=== PATIENT | female | born 1940 | race African-American/Black ===

== ENCOUNTER 2016-08-25 11:01 | Inpatient (IN) ==
[2016-08-25] MEDS ORDERED: NITROGLYCERIN SL 0.4 MG TABLET SL PRN (11:37)
[2016-08-25] MEDS ORDERED: ENOXAPARIN 100 MG/ML SYRINGE SUBCUT STA (11:37)
[2016-08-25] MEDS ORDERED: ASPIRIN 325 MG TABLET PO STA (11:37)
--- NOTE | 2016-08-25 11:42 | EKG Report ---
Stationary ECG Study [facility] ER Test Date: 08/25/2016 11:22:32 AM Pat Name: ROSA MARIA HUNTER Department: Room: Gender: F Collection Coordinator: Iris : 1940 Requested by: Bhavesh Nguyen Order Number: [id number] Reading MD: FRANCISCO NEWMAN Intervals [place] Rate: 101 P: 74 NC: 197 QRS: 51 QRSD: 78 T: 55 QT: 353 QTc: 411 Interpretive Statements SINUS TACHYCARDIA LOW QRS VOLTAGE IN CHEST LEADS Electronically Signed On 08-29-16 05:58:27 CORONARY CLINICAL SPECIALIST by FRANCISCO NEWMAN [email or web address]
[2016-08-25] MEDS ORDERED: ENOXAPARIN 80 MG/0.8 ML SYRINGE SUBCUT ONE (11:49)
[2016-08-25] MEDS ORDERED: ASPIRIN 325 MG TABLET ONE (11:50)
[2016-08-25] MEDS ORDERED: NITROGLYCERIN SL 0.4 MG TABLET SL ONE (11:50)
[2016-08-25 11:53] LABS: Basophils % 0.4 % (0.0-0.8); Eosinophils # 0.1 10*3/uL (0.0-0.87); Eosinophils % 1.5 % (0.00-10.9); Hematocrit 41.8 VOL% (35.7-47.0); Hemoglobin 13.6 GM/DL (12.0-16.0); Immature Granulocytes % 0.1 %; Immature Granulocytes Absolute 0.01 #; Lymphocytes # 3.4 10*3/uL (1.4-4.0); Lymphocytes % 41.9 % (21.3-54.2); Mean Corpuscular HGB Conc 32.5 GM/DL (32-36); Mean Corpuscular Hemoglobin 30 PG (27-34); Mean Corpuscular Volume 92.3 FL (87-102); Mean Platelet Volume 11.4 FL (9.6-12.0); Monocytes # 0.7 10*3/uL (0.11-0.8); Monocytes % 8.3 % (1.7-12.7); Neutrophils # 3.9 10*3/uL (1.4-7.4); Neutrophils % 47.8 % (38.7-73.9); Platelet Count 279 T/CUMM (130-400); Red Blood Count 4.53 MC/CUMM (3.8-5.5); Red Cell Distribution Width 13.2 % (9.3-17.3); White Blood Count 8.1 T/CUMM (4-12)
--- NOTE | 2016-08-25 12:06 | XRay Report ---
Portable chest Date: 08/25/2016 Clinical history: Chest pain Comparison: 10/28/2015 Technique: Portable AP sitting chest Findings: The heart is normal in size with uncoiling of the aorta. Chronic scarring in the lungs with minimal diffuse parenchymal findings at the lung bases. Osteopenia with degenerative changes. The patient is rotated on the film. Impression: Minimal atelectasis/infiltration/edema at the lung bases. Underlying chronic scarring. Osteopenia. PROCEDURE INTERPRETED AT [facility] DEPARTMENT OF RADIOLOGY Final Report Signed by: Dr. Abby Zacarias
[2016-08-25 12:16] LABS: Alanine Aminotransferase 18 U/L (13-56); Albumin 3.6 G/DL (3.4-5.0); Alkaline Phosphatase 120 U/L (45-117); Aspartate Amino Transferase 15 U/L (0-37); Bilirubin,Total < 0.39 MG/DL (0.2-1.0); Blood Urea Nitrogen 15 MG/DL (7-18); Calcium 9.1 MG/DL (8.5-10.1); Glucose 107 MG/DL (74-106); Magnesium 2.1 MG/DL (1.8-2.4); Osmolality,Calculated 283.1 MOS/KG (273-304); Potassium 4.1 MMOL/L (3.5-5.1); Sodium 142 MMOL/L (136-145); Total Protein 7.6 G/DL (6.4-8.3)
--- NOTE | 2016-08-25 13:34 | Emergency Department Note ---
Leah Barnes Brittany, am scribing for, and in the presence of, Bhavesh Kemp MD 11:46. Viridiana Barnes Phillip K, MD, personally performed the services described in this documentation, ascribed by Yenni Lynn in my presence, and it is both accurate and complete [id number] . Arrival - Arrival Chief Complaint: Chest Pain Stated Complaint: chest pain ED Nursing Triage Note: C/o intermittent, midsternal chest tightness-onset 0815 this morning. +SOB with exertion. Denies N/V. Denies CP at current. Mode of Arrival: Ambulatory Limitations: No Limitations Source: Patient Time Seen by Provider: 08/25/16 11:31 - History of Present Illness HPI Narrative: This is a 75 y/o black female,who presents to the ED with c/o CP which started at 0815 this morning. She states the pain comes and goes. She states she was eating breakfast this morning when the pain started. She denies any radiation. She denies any fever, diaphoresis, or nausea but notes a dry cough. She states the pain is not assoicated with exertion. Pt has no toher complaints/pain in the ED at this time. Pt has a PMHx of thyroid disorder, HTN, peripheral neuropathy, NIDDM, dyslipidemia, bronchitis, GERD, and back/neck problems. Pt has had an appendectomy and hysterectomy. Pt has a family medical Hx of heart disease, cancer, diabetes, HTN, and stroke. Pt denies a social Hx. Onset (ago): hour(s) (Started at 0815 this morning) Consistency: intermittent Severity: moderate Date of Last Menstrual Period: hysterectomy Allergies/Adverse Reactions: Allergies Allergy/AdvReac Type Severity Reaction Status Date / Time aspirin AdvReac Gastrointestinal Verified 10/28/15 11:31 Upset Penicillins AdvReac Swelling Verified 10/28/15 11:31 of Lip/Tongue/Throat Home Medications: Home Medications Medication Instructions Recorded Confirmed Type Amitriptyline HCl 25 mg PO BEDTIME 02/26/15 10/28/15 History Clopidogrel [Plavix] 75 mg PO DAILY 02/26/15 10/28/15 History Esomeprazole Magnesium [Nexium] 40 mg PO DAILY 02/26/15 10/28/15 History Meloxicam 15 mg PO DAILY 02/26/15 10/28/15 History Montelukast Tab [Singulair Tab] 10 mg PO DAILY 02/26/15 10/28/15 History Simvastatin [Zocor] 40 mg PO BEDTIME 02/26/15 10/28/15 History Tramadol HCl [Tramadol Tab] 50 mg PO BID 02/26/15 10/28/15 History amLODIPine [Norvasc] 5 mg PO DAILY 02/26/15 10/28/15 History hydroCHLOROthiazide 25 mg PO DAILY 02/26/15 10/28/15 History [Hydrochlorothiazide] methIMAzole [Tapazole] 10 mg PO DAILY 02/26/15 10/28/15 History metFORMIN [Glucophage] 500 mg PO BID W/MEALS #60 tablet 03/01/15 10/28/15 Rx Magnesium Chloride [Slow Mag] 64 mg PO TID 10/28/15 10/28/15 History Potassium Chloride [Klor-Con 10] 10 meq PO BID 10/28/15 10/28/15 History Review of System - Review of System 12 point system: reviewed and no additional remarkable complaints except as stated - Review of System Constitutional: Absent: diaphoresis, fever Respiratory: Present: cough Cardiovascular: Present: chest pain, other (Mild Dyspnea). Absent: dyspnea on exertion Gastrointestinal: Absent: nausea Medical,Surgical,& Family Hx - Medical History Cardio: History of: Hypertension Neurology: History of: Peripheral Neuropathy, Neurological Problems (history of left foot drop) Endocrine: History of: Diabetes Mellitus (NIDDM), Dyslipidemia, Thyroid Disorder Respiratory: History of: Bronchitis Gastrointestinal: History of: GERD Musculoskeletal: History of: Back/Neck Problems (chronic back pain) - Surgical History HEENT Surgeries: Surgical HX of: Eye Surgery (cataract both eyes) Abdominal Surgeries: Surgical HX of: Appendectomy Reproductive Surgeries: Surgical HX of;: Hysterectomy - Family History Family History: Reports;: Family Cancer (sister), Family Diabetes (father), Family Heart Disease (questionable coronary artery disease. Age greater than 55.), Family Hypertension (mother), Family Stroke (sister) - Social History Smoking Status: Former smoker Frequency of Alcohol Use: None Type of Drug Use: None Exam Vital Signs: Vital Signs Temperature 96.8 F L 08/25/16 13:36 Pulse Rate 101 H 08/25/16 13:36 Respiratory Rate 20 08/25/16 13:36 Blood Pressure 134/77 08/25/16 13:36 O2 Sat by Pulse Oximetry 99 08/25/16 12:30 - General General appearance: alert, in no apparent distress - Head Head exam: Present: atraumatic, normocephalic, normal inspection - Eye Eye exam: Present: normal appearance, PERRL, EOMI. Absent: nystagmus - ENT ENT exam: Present: normal exam, normal oropharynx, mucous membranes moist - Neck Neck exam: Present: normal inspection, full ROM, trachea midline. Absent: tenderness, meningismus, lymphadenopathy, thyromegaly - Chest Chest inspection: Present: normal inspection, symmetric chest wall rise. Absent : tenderness, rash, abscess - Respiratory Respiratory exam: Present: normal lung sounds bilaterally. Absent: prolonged expiratory phase, rales, respiratory distress, rhonchi, stridor, wheezes - Cardiovascular Cardiovascular exam: Present: tachycardia, normal heart sounds. Absent: murmur , rubs, gallop, clicks - Abdominal Exam Abdominal exam: Present: soft, normal bowel sounds. Absent: distention, tenderness, guarding, rebound, rigidity - Extremities Exam Extremities exam: Present: normal inspection, full ROM, normal capillary refill. Absent: tenderness, pedal edema, joint swelling, calf tenderness - Back Exam Back exam: Present: normal inspection, full ROM. Absent: tenderness, muscle spasm, rashes - Neurological Exam Neurological exam: Present: alert, oriented X3, CN II-XII intact - Psychiatric Psychiatric exam: Present: normal affect, normal mood. Absent: depressed, agitated, anxious - Skin Skin exam: Present: warm, dry, intact, normal color. Absent: rash, cyanosis, diaphoresis, erythema, pallor, mottled Course Course Narrative: Patient discussed with Dr. Sherman and we will admit and consult cardiology. Results - Labs CBC & BMP: 08/25/16 11:44 08/25/16 11:44 Lab Results: I have reviewed the patients labs Labs: Laboratory Tests 08/25/16 11:44 Creatinine 1.20 H Glucose 107 H Alkaline Phosphatase 120 H Globulin 4.0 H Albumin/Globulin Ratio 0.9 L Laboratory Tests 08/25/16 11:44 Troponin I < 0.015 - Diagnostic Findings Procedure: Chest x-ray: report reviewed by me (Minimal atelectasis/infiltration/ edema at the lung bases. Underlying chronic scarring. Osteopenia. ) Disposition Clinical Impression: Unstable angina pectoris, Chest pain, Essential hypertension, Diabetes mellitus Case discussed with: patient Disposition: Still a Patient Condition: Guarded Additional Instructions: Admit to Dr. Thapa and consult cardiology.
[2016-08-25] MEDS ORDERED: GLUCAGON 1 MG VIAL IM PRN (13:56)
[2016-08-25] MEDS ORDERED: ACETAMINOPHEN 325 MG TABLET PO PRN (13:56)
[2016-08-25] MEDS ORDERED: DEXTROSE 50% 25 GM/50 ML VIAL IV PRN (13:56)
[2016-08-25] MEDS ORDERED: ONDANSETRON 4 MG/2 ML VIAL IV PRN (13:56)
[2016-08-25] MEDS: DOCUSATE SODIUM 100 MG CAPSULE PO SCH (20:42)
[2016-08-26 05:42] LABS: Risk Ratio 2.23; VLDL CHOLESTEROL 20.4 MG/DL
--- NOTE | 2016-08-26 08:25 | EKG Report ---
Stationary ECG Study [facility] Test Date: 08/26/2016 8:23:57 AM Pat Name: ROSA MARIA HUNTER Department: Room: 276 Gender: F Vehicle Glass Technician: ZOILA : 1940 Requested by: Bertrand Hernandez Order Number: [id number] Reading MD: FRANCISCO NEWMNA Intervals [place] Rate: 74 P: 30 RI: 152 QRS: 18 QRSD: 89 T: 4 QT: 414 QTc: 441 Interpretive Statements SINUS RHYTHM LOW QRS VOLTAGE IN PRECORDIAL LEADS Electronically Signed On 08-29-16 11:31:46 PRIVATE SECURITY GUARD by FRANCISCO NEWMAN [email or web address]
[2016-08-26] MEDS: PANTOPRAZOLE 40 MG TABLET PO SCH (08:36)
[2016-08-26] MEDS: DOCUSATE SODIUM 100 MG CAPSULE PO SCH ×2 (08:36→20:37)
--- NOTE | 2016-08-26 11:43 | Cardiology Consult Note ---
I, Farzana Harrison, RN, am scribing for, and in the presence of, Bertrand Hernandez MD 11:42. Assessment and Plan (1) Chest pain Status: Acute Assessment and plan: We will continue to monitor serial cardiac biomarkers and EKGs. Patient is currently chest pain-free. Will monitor patient closely on the telemetry unit overnight. The patient's chest pain has many typical and some atypical features. She has multiple risk factors for coronary disease. This could be cardiac, GI or muscle skeletal related. However she's been in the hospital multiple times for chest pains and has had stress tests. Maybe this time we do a heart catheter to "know for sure" Recommend: Treat as if this is cardiac, GI or muscle skeletal Consider left heart catheter and possible and/or stent I discussed the risks, benefits, and alternatives. She is considering it. Left heart catheter, angioplasty, or stent.. The risks, benefits, and alternatives for doing a left heart catheter and possible angioplasty or stent were discussed in detail with the patient. It includes but is not limited to a possibility of injury to vessel, abnormal heart rhythm, stroke, heart attack, need for emergency surgery, contrast reaction, restenosis, . . The patient voices understanding. She is considering it. She will discuss it with be more tomorrow. Thank you for allowing to participate in this patient's care [I, Dr. Bertrand Hernandez, did see the patient on the day of 08/25/16 and was involved in the interview, examination, and management of this patient. I'm finishing the note at this point.] Current Visit: Yes (2) Hyperlipidemia Status: Chronic Assessment and plan: We will check a lipid profile. Current Visit: Yes (3) Diabetes mellitus Status: Chronic Current Visit: Yes (4) Essential hypertension Status: Chronic Assessment and plan: This is currently well controlled. Will continue current plan of care. Current Visit: Yes (5) Former smoker Status: Chronic Assessment and plan: Patient reports that she quit smoking 2 years ago. Current Visit: Yes (6) Hyperthyroidism Status: Chronic Current Visit: Yes (7) GERD (gastroesophageal reflux disease) Status: Chronic Current Visit: Yes History of Present Illness - Data of Consult Patient: new to practice Consult date: 08/25/16 Requesting Physician: Jordy Thapa Primary care physician: Jordy Thapa - Consult Narrative Reason for consult: chest pain History of present illness: Ms. Platt is a 75 year old -[place] female patient without known coronary artery disease, not routinely followed by cardiology. However, she has seen Dr. Harding during previous hospitalizations. Her primary care provider is Dr. Thapa. She presented to the emergency department this morning for further evaluation of chest discomfort. She has risk factors significant for diabetes, hyperlipidemia, advanced age, former smoker (quit 2 years ago), family history of heart disease (sister), sedentary lifestyle and hypertension. She has a past medical history of hyperthyroidism and GERD. She has a past surgical history appendectomy and hysterectomy. She reports that she has never had a heart catheterization in the past. She had a cardiac stress test in October 2015 that revealed normal myocardial perfusion. She was in her usual state of health until this morning when she began to experience mild midsternal chest discomfort while eating breakfast. She describes this discomfort as a nonradiating stabbing pain. This chest pain was also associated with shortness of breath and heart palpitations. She rates this pain as a 3-4. She tells me that this lasted approximately 30 seconds to 1 minute. Activity makes this worse. She reports that she had intermittent episodes of this chest pain so she decided to come to the ER for further workup. Her pain was relieved with nitroglycerin. She reports that she has not experienced any further pain since having the nitroglycerin. She denies nausea, edema, orthopnea, PND, abdominal pain, fever, chills, and cough. She also denies worsening dyspnea and activity intolerance. Patient was seen and examined in the ER. She is in no acute distress. She does me that she has now chest pain-free. Upon exam her chest is extremely tender to palpation. However, she tells me that this is not the same pain that she was experiencing. Her troponin has been negative 1 check. EKG does not reveal any acute findings and is unchanged from previous visits. She is currently in sinus rhythm with heart rates in the 90s without any overt arrhythmias or ectopy noted. We will continue to monitor serial troponins and EKGs. Will monitor patient closely overnight on the telemetry unit. CC: Jordy Thapa MD - Home Medications and Allergies Home Medications: Home Medications Medication Instructions Recorded Confirmed Type Amitriptyline HCl 25 mg PO BEDTIME 02/26/15 08/25/16 History Clopidogrel [Plavix] 75 mg PO DAILY 02/26/15 08/25/16 History Esomeprazole Magnesium [Nexium] 40 mg PO DAILY 02/26/15 08/25/16 History Meloxicam 15 mg PO DAILY 02/26/15 08/25/16 History Montelukast Tab [Singulair Tab] 10 mg PO DAILY 02/26/15 08/25/16 History Simvastatin [Zocor] 40 mg PO BEDTIME 02/26/15 08/25/16 History Tramadol HCl [Tramadol Tab] 50 mg PO BID 02/26/15 08/25/16 History amLODIPine [Norvasc] 5 mg PO DAILY 02/26/15 08/25/16 History hydroCHLOROthiazide 25 mg PO DAILY 02/26/15 08/25/16 History [Hydrochlorothiazide] methIMAzole [Tapazole] 10 mg PO DAILY 02/26/15 08/25/16 History metFORMIN [Glucophage] 500 mg PO BID W/MEALS #60 tablet 03/01/15 08/25/16 Rx Magnesium Chloride [Slow Mag] 64 mg PO TID 10/28/15 08/25/16 History Potassium Chloride [Klor-Con 10] 10 meq PO BID 10/28/15 08/25/16 History Allergies/Adverse Reactions: Allergies Allergy/AdvReac Type Severity Reaction Status Date / Time aspirin AdvReac Gastrointestinal Verified 10/28/15 11:31 Upset Penicillins AdvReac Swelling Verified 10/28/15 11:31 of Lip/Tongue/Throat - Constitutional Constitutional: Present: as per HPI. Absent: chills, fatigue, fever(s), frequent falls, malaise, weakness, weight gain, weight loss - Cardiovascular Cardiovascular: Present: as per HPI, dyspnea, palpitations. Absent: claudication, diaphoresis, dyspnea on exertion, edema, radiating jaw, neck or arm pain, lightheadedness, orthopnea, PND - Respiratory Respiratory: Present: dyspnea. Absent: cough, dyspnea on exertion, wheezing, snoring, pain on inspiration, change in phlegm color - Gastrointestinal Gastrointestinal: Absent: abdominal pain, change in bowel habits, coffee ground emesis, diarrhea, dyspepsia, dysphagia, heartburn, loose stools, melena, nausea , vomiting - Neurological Neurological: Absent: dizziness, frequent falls, syncope - Psychiatric Psychiatric: Absent: anxiety, panic attacks Medical,Surgical,& Family Hx - Medical History Cardio: History of: Hypertension No history of: CHF, CAD Psychological: No history of: Anxiety Disorders Neurology: History of: Peripheral Neuropathy, Neurological Problems (history of left foot drop) Endocrine: History of: Diabetes Mellitus (NIDDM), Dyslipidemia, Thyroid Disorder Respiratory: History of: Bronchitis Gastrointestinal: History of: GERD Musculoskeletal: History of: Back/Neck Problems (chronic back pain) - Surgical History HEENT Surgeries: Surgical HX of: Eye Surgery (cataract both eyes) Abdominal Surgeries: Surgical HX of: Appendectomy Reproductive Surgeries: Surgical HX of;: Hysterectomy - Family History Family History: Reports;: Family Cancer (sister), Family Diabetes (father), Family Heart Disease (Sister had CABG in her 60s.), Family Hypertension (mother) , Family Stroke (sister) - Social History Smoking Status: Former smoker (Quit 2 years ago) Frequency of Alcohol Use: None Type of Drug Use: None Physical Examination Vital Signs Temp Pulse Resp BP Pulse Ox 96.8 F L 101 H 18 134/77 100 08/25/16 11:19 08/25/16 11:19 08/25/16 11:19 08/25/16 11:19 08/25/16 11:19 General: Present: Appears Well, No Apparent Distress Neck: Present: Supple Neck, Midline Trachea, No Masses, No Bruit, No Lymphadenopathy Cardiac: Present: Reg Rate and Rhythm, Regular Rate, Regular Rhythm, S1/S2, No Murmur. Absent: Gallop, Tachycardia, Bradycardia Lungs: Present: Normal Exam, Clear Ascult./Percussion, Normal Breath Sounds, No Wheeze, Rales, Rhonchi Abdomen: Present: Soft, Active Bowel Sounds, No Masses, Non-Tender Skin: Present: Clear. Absent: Rash, Suspicious Lesions, Ulceration Extremities: Present: Normal Gait, No Clubbing, No Cyanosis, No Edema, Normal Upper Extr. Pulses, Normal Lower Extr. Pulses Result/EKG - Labs CBC & BMP: 08/25/16 11:44 08/25/16 11:44 Lab Results: I have reviewed the past 24 hour labs Labs: Laboratory Results - last 24 hr 08/25/16 08/25/16 08/25/16 15:18 15:18 18:21 POC Glucose Troponin I < 0.015 < 0.015 Triglycerides Cholesterol LDL Cholesterol VLDL Cholesterol HDL Cholesterol Heart Disease Risk Ratio TSH 3rd Generation 0.884 08/25/16 08/26/16 08/26/16 20:11 05:03 08:02 POC Glucose 114 H 118 H Troponin I Triglycerides 102 Cholesterol 176 LDL Cholesterol 81.0 VLDL Cholesterol 20.4 HDL Cholesterol 79 H Heart Disease Risk Ratio 2.23 TSH 3rd Generation 08/26/16 11:20 POC Glucose 131 H Troponin I Triglycerides Cholesterol LDL Cholesterol VLDL Cholesterol HDL Cholesterol Heart Disease Risk Ratio TSH 3rd Generation - EKG EKG results: interpreted by me, sinus rhythm I, Bertrand Hernandez MD, personally performed the services described in this documentation, ascribed by Farzana Harrison RN in my presence, and it is both accurate and complete .
--- NOTE | 2016-08-26 11:47 | Cardiology Progress Note ---
Assessment and Plan (1) Chest pain Status: Acute Assessment and plan: We will continue to monitor serial cardiac biomarkers and EKGs. Patient is currently chest pain-free. Will monitor patient closely on the telemetry unit overnight. The patient's chest pain has many typical and some atypical features. She has multiple risk factors for coronary disease. This could be cardiac, GI or muscle skeletal related. However she's been in the hospital multiple times for chest pains and has had stress tests. Maybe this time we do a heart catheter to "know for sure" Recommend: Treat as if this is cardiac, GI or muscle skeletal Consider left heart catheter and possible and/or stent I discussed the risks, benefits, and alternatives. She is considering it. Left heart catheter, angioplasty, or stent.. The risks, benefits, and alternatives for doing a left heart catheter and possible angioplasty or stent were discussed in detail with the patient. It includes but is not limited to a possibility of injury to vessel, abnormal heart rhythm, stroke, heart attack, need for emergency surgery, contrast reaction, restenosis, . . The patient voices understanding. She is considering it. She will discuss it with be more tomorrow. Thank you for allowing to participate in this patient's care 08/26/16-My plan/recommendation:at this point, or chest pain has not recurred. However, it is suggestive of cardiac etiology. She I rediscussed heart catheter. She wants it. We'll proceed with it on Sunday morning. We'll recheck her electrolytes, BUN, creatinine tomorrow to ensure her renal function is okay for the catheter. Current Visit: Yes (2) Hyperlipidemia Status: Chronic Assessment and plan: We will check a lipid profile. Current Visit: Yes (3) Diabetes mellitus Status: Chronic Current Visit: Yes (4) Essential hypertension Status: Chronic Assessment and plan: This is currently well controlled. Will continue current plan of care. Current Visit: Yes (5) Former smoker Status: Chronic Assessment and plan: Patient reports that she quit smoking 2 years ago. Current Visit: Yes (6) Hyperthyroidism Status: Chronic Current Visit: Yes (7) GERD (gastroesophageal reflux disease) Status: Chronic Current Visit: Yes (8) Elevated serum creatinine Status: Acute Current Visit: Yes Cardiology - PN: Subj Interval history: no more cp; Exam (Progress Note) - Constitutional Vitals: Period Temp Pulse Resp BP Sys/Rene Pulse Ox Last 24 Hr 96.6 F-98.4 F 73-95 12-20 90-125/53-82 97-100 Exam: No JVD or neck bruit HEENT: PERRLA Cardiac: Regular rhythm and rate with normal s1/S2. Lungs: Clear to auscultation Abdomen: Without organomegaly ors Spine/extremities: No clubbing, cyanosis, or edema. Neuro: nonfocal Psych: no vegetative signs of depression or anxiety lower extremity pulses are 3-4 + Result/EKG - Labs CBC & BMP: 08/25/16 11:44 08/25/16 11:44 Lab Results: I have reviewed the past 24 hour labs Labs: Laboratory Results - last 24 hr 08/25/16 08/25/16 08/25/16 15:18 15:18 18:21 POC Glucose Troponin I < 0.015 < 0.015 Triglycerides Cholesterol LDL Cholesterol VLDL Cholesterol HDL Cholesterol Heart Disease Risk Ratio TSH 3rd Generation 0.884 08/25/16 08/26/16 08/26/16 20:11 05:03 08:02 POC Glucose 114 H 118 H Troponin I Triglycerides 102 Cholesterol 176 LDL Cholesterol 81.0 VLDL Cholesterol 20.4 HDL Cholesterol 79 H Heart Disease Risk Ratio 2.23 TSH 3rd Generation 08/26/16 11:20 POC Glucose 131 H Troponin I Triglycerides Cholesterol LDL Cholesterol VLDL Cholesterol HDL Cholesterol Heart Disease Risk Ratio TSH 3rd Generation - EKG EKG results: interpreted by me
[2016-08-26] MEDS ORDERED: methIMAzole 10 MG TABLET PO SCH (12:00)
[2016-08-26] MEDS ORDERED: amLODIPine 5 MG TABLET PO SCH (12:00)
[2016-08-26] MEDS ORDERED: NON-FORMULARY MEDICATION (Esomeprazole Magnesium [Nexium] 40 MG) PO SCH (12:00)
[2016-08-26] MEDS ORDERED: CLOPIDOGREL 75 MG TABLET PO SCH (12:00)
[2016-08-26] MEDS ORDERED: traMADol 50 MG TABLET PO SCH (12:00)
[2016-08-26] MEDS ORDERED: NON-FORMULARY MEDICATION (Potassium Chloride [Klor-Con 10] 10 MEQ) PO SCH (12:00)
[2016-08-26] MEDS ORDERED: hydroCHLOROthiazide 25 MG TABLET PO SCH (12:00)
--- NOTE | 2016-08-26 14:00 | Family Practice History&Phys ---
Assessment and Plan (1) Chest pain Status: Acute Assessment and plan: Patient will be admitted and cardiology consult. We'll obtain appropriate lab and x-ray studies Current Visit: Yes (2) Diabetes mellitus Status: Chronic Assessment and plan: Will resume home medications and start on sliding scale Current Visit: Yes (3) Essential hypertension Status: Chronic Assessment and plan: Will resume home medications and monitor closely Current Visit: Yes (4) GERD (gastroesophageal reflux disease) Status: Chronic Assessment and plan: Will elevate head of bed and continue present medications Current Visit: Yes (5) Hyperlipidemia Status: Chronic Assessment and plan: We will continue home medications Current Visit: Yes History of Present Illness Chief complaint: chest pain History of present illness: Ms. Platt is a 75 year old female This is a 75 y/o black female,who presents to the ED with c/o CP which started at 0815 this morning. She states the pain comes and goes. She states she was eating breakfast this morning when the pain started. She denies any radiation. She denies any fever, diaphoresis, or nausea but notes a dry cough. She states the pain is not assoicated with exertion. Pt has no complaints/pain in the ED at this time. Pt has a PMHx of thyroid disorder, HTN, peripheral neuropathy, NIDDM, dyslipidemia, bronchitis, GERD, and back/neck problems. Pt has had an appendectomy and hysterectomy. Pt has a family medical Hx of heart disease, cancer, diabetes, HTN, and stroke. Pt denies a social Hx. in view of history was admitted for further evaluation therapy. Home Medications Medication Instructions Recorded Confirmed Type Amitriptyline HCl 25 mg PO BEDTIME 02/26/15 08/25/16 History Clopidogrel [Plavix] 75 mg PO DAILY 02/26/15 08/25/16 History Esomeprazole Magnesium [Nexium] 40 mg PO DAILY 02/26/15 08/25/16 History Meloxicam 15 mg PO DAILY 02/26/15 08/25/16 History Montelukast Tab [Singulair Tab] 10 mg PO DAILY 02/26/15 08/25/16 History Simvastatin [Zocor] 40 mg PO BEDTIME 02/26/15 08/25/16 History Tramadol HCl [Tramadol Tab] 50 mg PO BID 02/26/15 08/25/16 History amLODIPine [Norvasc] 5 mg PO DAILY 02/26/15 08/25/16 History hydroCHLOROthiazide 25 mg PO DAILY 02/26/15 08/25/16 History [Hydrochlorothiazide] methIMAzole [Tapazole] 10 mg PO DAILY 02/26/15 08/25/16 History metFORMIN [Glucophage] 500 mg PO BID W/MEALS #60 tablet 03/01/15 08/25/16 Rx Magnesium Chloride [Slow Mag] 64 mg PO TID 10/28/15 08/25/16 History Potassium Chloride [Klor-Con 10] 10 meq PO BID 10/28/15 08/25/16 History Allergies Allergy/AdvReac Type Severity Reaction Status Date / Time aspirin AdvReac Gastrointestinal Verified 10/28/15 11:31 Upset Penicillins AdvReac Swelling Verified 10/28/15 11:31 of Lip/Tongue/Throat Medical,Surgical,& Family Hx - Medical History Cardio: History of: Hypertension No history of: CHF, CAD Psychological: No history of: Anxiety Disorders Neurology: History of: Migraine, Peripheral Neuropathy, Neurological Problems ( history of left foot drop) Endocrine: History of: Diabetes Mellitus (NIDDM), Dyslipidemia, Thyroid Disorder Respiratory: History of: Bronchitis Gastrointestinal: History of: GERD Musculoskeletal: History of: Back/Neck Problems (chronic back pain) - Surgical History HEENT Surgeries: Surgical HX of: Eye Surgery (cataract both eyes) Abdominal Surgeries: Surgical HX of: Appendectomy Reproductive Surgeries: Surgical HX of;: Hysterectomy - Family History Family History: Reports;: Family Cancer (sister), Family Diabetes (father), Family Heart Disease (Sister had CABG in her 60s.), Family Hypertension (mother) , Family Stroke (sister) - Social History Smoking Status: Former smoker (Quit 2 years ago) Frequency of Alcohol Use: None Type of Drug Use: None Exam - Constitutional Vitals: Period Temp Pulse Resp BP Sys/Rene Pulse Ox Last 24 Hr 96.6 F-98.4 F 73-95 12-20 90-125/53-82 97-100 General appearance: no acute distress - Head Head exam: Present: normal inspection - ENT ENT exam: Present: normal exam - Neck Neck exam: Present: normal inspection - Respiratory Respiratory exam: Present: clear to auscultation bilaterally - Cardiovascular Cardiovascular exam: Present: regular rate and rhythm - GI/Abdominal GI/Abdominal exam: Present: normal bowel sounds, soft - Extremities Exam Extremities exam: Present: normal inspection - Back Exam Back exam: Present: normal inspection - Neurological Exam Neurological exam: Present: alert, oriented X3 - Psychiatric Psychiatric exam: Present: normal affect - Skin Skin exam: Present: normal color Results - Labs CBC & BMP: 08/25/16 11:44 08/25/16 11:44
[2016-08-26] MEDS: MAGNESIUM CHLORIDE 64 MG TABLET PO SCH ×2 (14:25→20:37)
[2016-08-26] MEDS ORDERED: MAGNESIUM CHLORIDE 64 MG TABLET PO SCH (15:00)
[2016-08-26] MEDS ORDERED: metFORMIN 500 MG TABLET PO SCH ×2 (17:00)
[2016-08-26] MEDS: traMADol 50 MG TABLET PO SCH (20:37)
[2016-08-26] MEDS: POTASSIUM CHLORIDE 10 MEQ TABLET PO SCH (20:37)
[2016-08-26] MEDS: AMITRIPTYLINE 25 MG TABLET PO SCH (20:37)
[2016-08-26] MEDS: SIMVASTATIN 40 MG TABLET PO SCH (20:37)
[2016-08-26] MEDS ORDERED: AMITRIPTYLINE 25 MG TABLET PO SCH (21:00)
[2016-08-26] MEDS ORDERED: SIMVASTATIN 40 MG TABLET PO SCH (21:00)
[2016-08-27 04:14] LABS: Basophils % 0.5 % (0.0-0.8); Eosinophils # 0.2 10*3/uL (0.0-0.87); Eosinophils % 1.7 % (0.00-10.9); Hematocrit 38.2 VOL% (35.7-47.0); Hemoglobin 12.5 GM/DL (12.0-16.0); Immature Granulocytes % 0.1 %; Immature Granulocytes Absolute 0.01 #; Lymphocytes # 5.3 10*3/uL (1.4-4.0); Lymphocytes % 61.5 % (21.3-54.2); Mean Corpuscular HGB Conc 32.7 GM/DL (32-36); Mean Corpuscular Hemoglobin 30 PG (27-34); Mean Platelet Volume 11.2 FL (9.6-12.0); Monocytes # 0.8 10*3/uL (0.11-0.8); Monocytes % 8.6 % (1.7-12.7); Neutrophils # 2.4 10*3/uL (1.4-7.4); Neutrophils % 27.6 % (38.7-73.9); Platelet Count 267 T/CUMM (130-400); Red Blood Count 4.15 MC/CUMM (3.8-5.5); Red Cell Distribution Width 13.2 % (9.3-17.3); White Blood Count 8.7 T/CUMM (4-12)
[2016-08-27 04:21] LABS: Calcium 9.2 MG/DL (8.5-10.1); Osmolality,Calculated 288.8 MOS/KG (273-304); Potassium 3.9 MMOL/L (3.5-5.1)
[2016-08-27 06:17] LABS: Band Neutrophils 1 % (0-10); Eosinophils 1 % (0-10); Lymphocytes 57 % (20-55); Platelet Estimate Normal; Segmented Neutrophils 32 % (50-85); Total Cells Counted 100
[2016-08-27 08:35] LABS: Apearance,Urine CLOUDY (Clear); Bacteria,Urine Occasional /HPF (Few); Bilirubin,Urine Negative (Negative); Blood, Urine Negative (Negative); Glucose,Urine (UA) Negative (Negative); Hyaline Casts,Urine 1 /LPF (0-3); Ketones,Urine Negative (Negative); Mucus,Urine Few /LPF (Occasional); Nitrite,Urine Negative (Negative); Protein,Urine Negative; RBC,Urine 3 /HPF (0-4); Squamous Epithelial Cell,Urine Few /HPF (0-10); Urine Color Yellow (Yellow); Urine Specific Gravity 1.027 (1.001-1.035); Urine Urobilinogen < 2.0 EU/DL (0.2-1.0); WBC,Urine 18 /HPF (0-6)
[2016-08-27] MEDS: MAGNESIUM CHLORIDE 64 MG TABLET PO SCH ×3 (08:46→21:20)
[2016-08-27] MEDS: CLOPIDOGREL 75 MG TABLET PO SCH (08:46)
[2016-08-27] MEDS: MONTELUKAST 10 MG TABLET PO SCH (08:46)
[2016-08-27] MEDS: MELOXICAM 7.5 MG TABLET PO SCH (08:46)
[2016-08-27] MEDS: PANTOPRAZOLE 40 MG TABLET PO SCH (08:46)
[2016-08-27] MEDS: hydroCHLOROthiazide 12.5 MG CAPSULE PO SCH (08:47)
[2016-08-27] MEDS: traMADol 50 MG TABLET PO SCH ×2 (08:47→21:20)
[2016-08-27] MEDS: DOCUSATE SODIUM 100 MG CAPSULE PO SCH ×2 (08:47→21:20)
[2016-08-27] MEDS: POTASSIUM CHLORIDE 10 MEQ TABLET PO SCH ×2 (08:47→21:20)
[2016-08-27] MEDS: amLODIPine 5 MG TABLET PO SCH (08:49)
[2016-08-27] MEDS ORDERED: methIMAzole 5 MG TABLET PO SCH (09:00)
[2016-08-27] MEDS ORDERED: NON-FORMULARY MEDICATION (Meloxicam [Meloxicam] 15 MG) PO SCH (09:00)
[2016-08-27] MEDS ORDERED: PANTOPRAZOLE 40 MG TABLET PO SCH (09:00)
[2016-08-27] MEDS: LEVOFLOXACIN 500 MG TABLET PO SCH (13:04)
--- NOTE | 2016-08-27 13:07 | Family Practice Progress Note ---
Family Practice - PN: Subj Interval history: Patient up in chair states that she is feeling well no chest pain or shortness of breath today. Her a.m. vitals are stable. Reviewed a.m. labs which are also stable. Her urine is suspicious for urinary tract infection and urine culture is pending. Since she will probably have a procedure in a.m. Will start on oral antibiotics until urine culture is available. Her lung rivero are clear, abdomen is soft, minimal peripheral edema. We'll continue present evaluation treatment. Exam (Progress Note) - Constitutional Vitals: Period Temp Pulse Resp BP Sys/Rene Pulse Ox Last 24 Hr 97.6 F-99.0 F 72-90 16-20 100-123/56-72 93-100 Results - Labs CBC & BMP: 08/27/16 03:33 08/27/16 03:33 Assessment and Plan (1) Chest pain Status: Acute Assessment and plan: Patient will be admitted and cardiology consult. We'll obtain appropriate lab and x-ray studies Current Visit: Yes (2) Diabetes mellitus Status: Chronic Assessment and plan: Will resume home medications and start on sliding scale Current Visit: Yes (3) Essential hypertension Status: Chronic Assessment and plan: Will resume home medications and monitor closely Current Visit: Yes (4) GERD (gastroesophageal reflux disease) Status: Chronic Assessment and plan: Will elevate head of bed and continue present medications Current Visit: Yes (5) Hyperlipidemia Status: Chronic Assessment and plan: We will continue home medications Current Visit: Yes
[2016-08-27] MEDS: SIMVASTATIN 40 MG TABLET PO SCH (21:20)
[2016-08-27] MEDS: AMITRIPTYLINE 25 MG TABLET PO SCH (21:20)
--- NOTE | 2016-08-27 23:17 | Cardiology Progress Note ---
Assessment and Plan (1) Chest pain Status: Acute Assessment and plan: We will continue to monitor serial cardiac biomarkers and EKGs. Patient is currently chest pain-free. Will monitor patient closely on the telemetry unit overnight. The patient's chest pain has many typical and some atypical features. She has multiple risk factors for coronary disease. This could be cardiac, GI or muscle skeletal related. However she's been in the hospital multiple times for chest pains and has had stress tests. Maybe this time we do a heart catheter to "know for sure" Recommend: Treat as if this is cardiac, GI or muscle skeletal Consider left heart catheter and possible and/or stent I discussed the risks, benefits, and alternatives. She is considering it. Left heart catheter, angioplasty, or stent.. The risks, benefits, and alternatives for doing a left heart catheter and possible angioplasty or stent were discussed in detail with the patient. It includes but is not limited to a possibility of injury to vessel, abnormal heart rhythm, stroke, heart attack, need for emergency surgery, contrast reaction, restenosis, . . The patient voices understanding. She is considering it. She will discuss it with be more tomorrow. Thank you for allowing to participate in this patient's care 08/26/16-My plan/recommendation:at this point, or chest pain has not recurred. However, it is suggestive of cardiac etiology. She I rediscussed heart catheter. She wants it. We'll proceed with it on Sunday morning. We'll recheck her electrolytes, BUN, creatinine tomorrow to ensure her renal function is okay for the catheter. 08/27/16-Plan/ recommendation : There was some chest pain. She will be for heart catheterization tomorrow. Labs are checked today. They are acceptable. Pre-cath orders are entered. All questions were answered for the patient and her daughter/family. Her daughter did mention that she eats late in the evening. I encouraged her to avoid eating any food or drink within 3 hours of reclining. I will be after about 7 PM, avoid food or drink. She plans to try to do so. I voiced that it would reduce her risk of having heartburn. Current Visit: Yes (2) Hyperlipidemia Status: Chronic Assessment and plan: We will check a lipid profile. Current Visit: Yes (3) Diabetes mellitus Status: Chronic Current Visit: Yes (4) Essential hypertension Status: Chronic Assessment and plan: This is currently well controlled. Will continue current plan of care. Current Visit: Yes (5) Former smoker Status: Chronic Assessment and plan: Patient reports that she quit smoking 2 years ago. Current Visit: Yes (6) Hyperthyroidism Status: Chronic Current Visit: Yes (7) GERD (gastroesophageal reflux disease) Status: Chronic Current Visit: Yes (8) Elevated serum creatinine Status: Acute Current Visit: Yes Cardiology - PN: Subj Interval history: Some chest pain last night. It was milder than her admitting pain. Exam (Progress Note) - Constitutional Vitals: Period Temp Pulse Resp BP Sys/Rene Pulse Ox Last 24 Hr 97.6 F-99.0 F 72-83 16-20 100-123/57-72 90-98 Exam: No JVD or neck bruit HEENT: PERRLA Cardiac: Regular rhythm and rate with normal s1/S2. Lungs: Clear to auscultation Abdomen: Without organomegaly ors Spine/extremities: No clubbing, cyanosis, or edema. Neuro: nonfocal Psych: no vegetative signs of depression or anxiety lower extremity pulses are 3-4 + Result/EKG - Labs CBC & BMP: 08/27/16 03:33 08/27/16 03:33 Lab Results: I have reviewed the past 24 hour labs Labs: Laboratory Results - last 24 hr 08/27/16 08/27/16 08/27/16 03:33 03:33 03:33 WBC 8.7 RBC 4.15 Hgb 12.5 Hct 38.2 MCV 92.0 MCH 30 MCHC 32.7 RDW 13.2 Plt Count 267 MPV 11.2 Neut % (Auto) 27.6 L Lymph % (Auto) 61.5 H [place] % (Auto) 8.6 Eos % (Auto) 1.7 Baso % (Auto) 0.5 Neut # (Auto) 2.4 Lymph # (Auto) 5.3 H [place] # (Auto) 0.8 Eos # (Auto) 0.2 Baso # (Auto) 0.0 Total Counted 100 Immature Gran % 0.1 Nucleated RBC % 0.0 Immature Gran # 0.01 Segmented Neutrophils 32 L Band Neutrophils 1 Lymphocytes 57 H Monocytes 8 Eosinophils 1 Basophils 1.0 H Nucleated RBCs # 0.00 Platelet Estimate Normal Pappenheimer Bodies Fender Mechanic Sodium 144 Potassium 3.9 Chloride 109 H Carbon Dioxide 26 Anion Gap 12.9 BUN 17 Creatinine 1.10 H GFR Calculation 61 BUN/Creatinine Ratio 15.00 Glucose 124 H POC Glucose Calculated Osmolality 288.8 Calcium 9.2 Magnesium 2.1 Urine Color Urine Appearance Urine pH Ur Specific [place] Urine Protein Urine Glucose (UA) Urine Ketones Urine Blood Urine Nitrate Urine Bilirubin Urine Urobilinogen Urine Leukocytes Urine RBC Urine WBC Ur Squamous Epith Cells Urine Bacteria Hyaline Casts Urine Mucus Ur Culture Indicated? 08/27/16 08/27/16 08/27/16 04:00 08:02 11:29 WBC RBC Hgb Hct MCV MCH MCHC RDW Plt Count MPV Neut % (Auto) Lymph % (Auto) [place] % (Auto) Eos % (Auto) Baso % (Auto) Neut # (Auto) Lymph # (Auto) [place] # (Auto) Eos # (Auto) Baso # (Auto) Total Counted Immature Gran % Nucleated RBC % Immature Gran # Segmented Neutrophils Band Neutrophils Lymphocytes Monocytes Eosinophils Basophils Nucleated RBCs # Platelet Estimate Pappenheimer Bodies Sodium Potassium Chloride Carbon Dioxide Anion Gap BUN Creatinine GFR Calculation BUN/Creatinine Ratio Glucose POC Glucose 135 H 108 H Calculated Osmolality Calcium Magnesium Urine Color Yellow Urine Appearance Cloudy Urine pH 5.0 Ur Specific [place] 1.027 Urine Protein Negative Urine Glucose (UA) Negative Urine Ketones Negative Urine Blood Negative Urine Nitrate Negative Urine Bilirubin Negative Urine Urobilinogen < 2.0 H Urine Leukocytes Large H Urine RBC 3 Urine WBC 18 Ur Squamous Epith Cells Few Urine Bacteria Occasional Hyaline Casts 1 Urine Mucus Few Ur Culture Indicated? Results to follow 08/27/16 08/27/16 16:34 20:10 WBC RBC Hgb Hct MCV MCH MCHC RDW Plt Count MPV Neut % (Auto) Lymph % (Auto) [place] % (Auto) Eos % (Auto) Baso % (Auto) Neut # (Auto) Lymph # (Auto) [place] # (Auto) Eos # (Auto) Baso # (Auto) Total Counted Immature Gran % Nucleated RBC % Immature Gran # Segmented Neutrophils Band Neutrophils Lymphocytes Monocytes Eosinophils Basophils Nucleated RBCs # Platelet Estimate Pappenheimer Bodies Sodium Potassium Chloride Carbon Dioxide Anion Gap BUN Creatinine GFR Calculation BUN/Creatinine Ratio Glucose POC Glucose 154 H 74 Calculated Osmolality Calcium Magnesium Urine Color Urine Appearance Urine pH Ur Specific [place] Urine Protein Urine Glucose (UA) Urine Ketones Urine Blood Urine Nitrate Urine Bilirubin Urine Urobilinogen Urine Leukocytes Urine RBC Urine WBC Ur Squamous Epith Cells Urine Bacteria Hyaline Casts Urine Mucus Ur Culture Indicated? - EKG EKG results: interpreted by me
[2016-08-27] MEDS ORDERED: POTASSIUM CHLORIDE RIDER 10 MEQ in PREMIX 1 EACH IV PRN (23:20)
[2016-08-27] MEDS ORDERED: MAGNESIUM SULF RIDER 2 GM in PREMIX 1 EACH IV PRN (23:20)
--- NOTE | 2016-08-27 23:22 | History and Physical Update ---
Sedation H&P Update - History and Physical H&P was reviewed, the patient examined and there: are no changes in the patients condition since last H&P was completed. - Dictation Physical: refer to H&P completed by admitting physician - Physical Exam Mental Status: alert and oriented Heart: regular rate and rhythm Lung: clear to auscultation Abdomen: within normal limits Vitals: within normal limits - Sedation Plan for Sedation: minimal Patient Consent: Procedure disscussed with patient and patinet has consented., Risks and benefits were discussed with patient,including infection,, bleeding, injury to surrounding structures, seizure, temporary nerve, Patient understands and accepts potential risks/benefits and agrees to, proceed. ASA Class: II Airway Assessment: Class II: Soft palate, uvula, fauces visible
[2016-08-28 05:05] LABS: Basophils # 0.1 10*3/uL (0.0-0.2); Basophils % 0.7 % (0.0-0.8); Eosinophils # 0.2 10*3/uL (0.0-0.87); Hematocrit 40.1 VOL% (35.7-47.0); Immature Granulocytes % 0.1 %; Immature Granulocytes Absolute 0.01 #; Lymphocytes # 5.1 10*3/uL (1.4-4.0); Lymphocytes % 60.4 % (21.3-54.2); Mean Corpuscular HGB Conc 32.4 GM/DL (32-36); Mean Corpuscular Hemoglobin 30 PG (27-34); Mean Corpuscular Volume 91.8 FL (87-102); Mean Platelet Volume 11.5 FL (9.6-12.0); Monocytes # 0.6 10*3/uL (0.11-0.8); Monocytes % 7.3 % (1.7-12.7); Neutrophils # 2.5 10*3/uL (1.4-7.4); Neutrophils % 29.5 % (38.7-73.9); Platelet Count 275 T/CUMM (130-400); Red Blood Count 4.37 MC/CUMM (3.8-5.5); Red Cell Distribution Width 13.3 % (9.3-17.3); White Blood Count 8.4 T/CUMM (4-12)
[2016-08-28 05:32] LABS: Calcium 9.3 MG/DL (8.5-10.1); Osmolality,Calculated 288.8 MOS/KG (273-304); Potassium 4.3 MMOL/L (3.5-5.1)
[2016-08-28 05:38] LABS: Atypical Lymphocytes Few; Eosinophils 3 % (0-10); Hypochromasia 1+; Lymphocytes 61 % (20-55); Platelet Estimate Adequate; Segmented Neutrophils 32 % (50-85); Total Cells Counted 100
[2016-08-28] MEDS ORDERED: SODIUM CHLORIDE 0.9% 1,000 ML IV SCH (06:30)
[2016-08-28] MEDS ORDERED: diphenhydrAMINE CAP 25 MG CAPSULE PO ONE (06:30)
[2016-08-28] MEDS ORDERED: DIAZEPAM 5 MG TABLET PO ONE (06:30)
--- NOTE | 2016-08-28 07:32 | EKG Report ---
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
[2016-08-28] MEDS: amLODIPine 5 MG TABLET PO SCH (08:04)
[2016-08-28] MEDS: CLOPIDOGREL 75 MG TABLET PO SCH (08:05)
--- NOTE | 2016-08-28 08:39 | Internal Med Progress Note ---
Assessment and Plan (1) Chest pain Status: Acute Assessment and plan: 75-year-old female admitted to acute care * Chest pain. Patient with multiple risk factors. Negative enzymes. She is going for cardiac cath this morning to evaluate. * Hypertension. Continue current treat * Diabetes. Continue her current medications. * Discussed with patient and her daughter Current Visit: Yes (2) Diabetes mellitus Status: Chronic Current Visit: Yes (3) Essential hypertension Status: Chronic Current Visit: Yes (4) GERD (gastroesophageal reflux disease) Status: Chronic Current Visit: Yes (5) Hyperlipidemia Status: Chronic Current Visit: Yes (6) Hyperthyroidism Status: Chronic Current Visit: Yes Internal Medicine - PN: Subj Interval history: She is feeling fine this morning. No further chest pain. No shortness of breath or cough. No nausea or vomiting. Exam (Progress Note) - Constitutional Vitals: Period Temp Pulse Resp BP Sys/Rene Pulse Ox Last 24 Hr 97.1 F-98.8 F 76-84 16-21 103-123/58-72 90-98 Exam: Examination: GENERAL: NAD. HEENT: PERRLA. EOMI. NECK: Neck is supple. CVS: Regular rate and rhythm. S1 and S2 are normal. RESPIRATORY: Lungs are clear. No rales or rhonchi. ABDOMEN: Soft and nontender. EXT: No edema. Peripheral pulses are present. RESERVOIR ENGINEERING ADVISOR: Patient is alert and oriented 3 SKIN: Warm and dry. MSK: No obvious deformity. Results - Labs CBC & BMP: 08/28/16 04:50 08/28/16 04:50 Lab Results: I have reviewed the past 24 hour labs
[2016-08-28] MEDS ORDERED: LIDOCAINE 1% 20 ML VIAL ONE (08:42)
[2016-08-28] MEDS ORDERED: MEPERIDINE 25 MG/1 ML VIAL ONE (08:50)
[2016-08-28] MEDS ORDERED: MIDAZOLAM 2 MG/2 ML VIAL ONE (08:51)
[2016-08-28] MEDS: hydroCHLOROthiazide 12.5 MG CAPSULE PO SCH (08:58)
[2016-08-28] MEDS: POTASSIUM CHLORIDE 10 MEQ TABLET PO SCH ×2 (08:58→21:31)
[2016-08-28] MEDS: MELOXICAM 7.5 MG TABLET PO SCH (08:58)
[2016-08-28] MEDS: DOCUSATE SODIUM 100 MG CAPSULE PO SCH ×2 (08:58→21:31)
[2016-08-28] MEDS: MONTELUKAST 10 MG TABLET PO SCH (08:59)
[2016-08-28] MEDS: MAGNESIUM CHLORIDE 64 MG TABLET PO SCH ×3 (08:59→21:30)
[2016-08-28] MEDS: traMADol 50 MG TABLET PO SCH ×2 (08:59→21:30)
[2016-08-28] MEDS: PANTOPRAZOLE 40 MG TABLET PO SCH (08:59)
[2016-08-28] MEDS: LEVOFLOXACIN 500 MG TABLET PO SCH (08:59)
[2016-08-28] MEDS ORDERED: HEPARIN 5,000 UNIT/1 ML VIAL ONE (09:08)
--- NOTE | 2016-08-28 09:53 | Operative Note ---
Date of procedure: 08/28/16 Procedure Preformed: Left heart cath Coronary angiography Left ventriculography Angio-Seal of the right femoral artery-successful Surgeon / Physician: Bertrand Hernandez Post-op diagnosis: same (Recurrent chest pain, multiple episodes of admission or evaluation for chest pain, most risk factors for coronary disease-evaluate for evidence of ischemia, "need to know".) Findings: Impression: No significant coronary disease-minimal luminal irregularities, she has some 20 % or so lesions in multiple vessels Moderate distal vessel tortuosities Mild ectasia and tortuosity of the aorta-early atherosclerotic disease Normal global/regional left ventricular systolic function Moderate elevation of LVEDP, 20 mmHg Angiogram of the right femoral artery-by follow-through from LV gram Angio-Seal right femoral artery-successful Plan/recommendations: The patient will have risk factors optimized. The patient will be on antiplatelet medications to include Plavix indefinitely. She is on a statin, so we will try to optimize her LDL. As Dr. Thapa is doing. If she could tolerate a low-dose of beta-batsheva, such as carvedilol, will try. It would be to reduce her DP/DT and stress on the aorta. This was slow progression of ectasia/aneurysmal formation. My suspicion is that her chest pain is either muscle skeletal or GI related. She apparently eats snacks late at night. I discussed that that may increase reflux and/or esophageal pain so I asked her not to eat within 3 or 4 hours of reclining. She plans to try to do so. At her request, I will see her back in about 8 weeks to assess how she is doing. I can certainly see her sooner should problems arise. It might be that this negative cath will help minimize some of her chest pain anyway, as it will be reassuring to her. Addenda: I saw the patient post-cath. the groin puncture site and distal pulse are stable. vital signs are stable and the patient will be observed closely overnight. Specimens: none sent Estimated blood loss: minimal Condition: stable Anesthesia: local, conscious sedation Disposition: floor
[2016-08-28] MEDS: SODIUM CHLORIDE 0.9% 1,000 ML IV SCH (10:16)
--- NOTE | 2016-08-28 11:49 | Cardiology Operative Report ---
Date of Procedure:: 08/28/16 Post-op diagnosis: same (Recurrent chest pain, multiple episodes of admission or evaluation for chest pain, most risk factors for coronary disease-evaluate for evidence of ischemia, "need to know".) Procedure: Date of procedure: 08/28/16 Procedure Preformed: Left heart cath Coronary angiography Left ventriculography Angio-Seal of the right femoral artery-successful Surgeon / Physician: Bertrand Hernandez Post-op diagnosis: same (Recurrent chest pain, multiple episodes of admission or evaluation for chest pain, most risk factors for coronary disease-evaluate for evidence of ischemia, "need to know".) procedure: The patient was prepped and draped in usual manner. Entered the right femoral artery via the Seldinger technique. I used a sheath and then used a JL4 and engaged left coronary. Multiple views were taken. I then exchanged for a JR4. Multiple views of the right coronary were taken. I then exchanged for an angled pigtail. I crossed the valve. Left ventricular end-diastolic pressures measured. Left ventriculography was done. Left ventricle pullback was done. The catheters were then removed from the patient. Please see the cath data sheets for the details of catheters used. Complications: None Hemodynamic data: LVEDP was 20 mmHg. Angiographic data: The left main coronary was large and had minimal luminal irregularities. The left anterior descending artery was large and there were minimal luminal irregularities The left circumflex system was moderate to large, there are minimal luminal irregularities in the circumflex The right coronary artery was large in size, dominant vessel with the PDA. there were minimal luminal irregularities. WICK left ventriculography revealed normal global/regional left ventricular systolic function. Overall ejection fraction was at least 55%. There is no significant mitral regurgitation. Angiogram of the right femoral artery-via follow-through for the LV gram revealed the puncture site to be in a large vessel, above the bifurcation. It was suitable for Angio-Seal. Findings: Impression: No significant coronary disease-minimal luminal irregularities, she has some 20 % or so lesions in multiple vessels Moderate distal vessel tortuosities Mild ectasia and tortuosity of the aorta-early atherosclerotic disease Normal global/regional left ventricular systolic function, LVEF greater than 55% Moderate elevation of LVEDP, 20 mmHg Angiogram of the right femoral artery-by follow-through from LV gram Angio-Seal right femoral artery-successful Plan/recommendations: The patient will have risk factors optimized. The patient will be on antiplatelet medications to include Plavix indefinitely. She is on a statin, so we will try to optimize her LDL. As Dr. Thapa is doing. If she could tolerate a low-dose of beta-batsheva, such as carvedilol, will try. It would be to reduce her DP/DT and stress on the aorta. This was slow progression of ectasia/aneurysmal formation. My suspicion is that her chest pain is either muscle skeletal or GI related. She apparently eats snacks late at night. I discussed that that may increase reflux and/or esophageal pain so I asked her not to eat within 3 or 4 hours of reclining. She plans to try to do so. At her request, I will see her back in about 8 weeks to assess how she is doing. I can certainly see her sooner should problems arise. It might be that this negative cath will help minimize some of her chest pain anyway, as it will be reassuring to her. Addenda: I saw the patient post-cath. the groin puncture site and distal pulse are stable. vital signs are stable and the patient will be observed closely overnight. Specimens: none sent Estimated blood loss: minimal Condition: stable Anesthesia: local, conscious sedation Disposition: floor Additional CC's: Bertrand Thapa Anesthesia: local, minimal conscious sedation Surgeon / Physician: Bertrand Hernandez Estimated blood loss: minimal Specimens: none sent Condition: stable Disposition: floor
[2016-08-28] MEDS: AMITRIPTYLINE 25 MG TABLET PO SCH (21:30)
[2016-08-28] MEDS: SIMVASTATIN 40 MG TABLET PO SCH (21:30)
[2016-08-29] MEDS: SODIUM CHLORIDE 0.9% 1,000 ML IV SCH (04:30)
[2016-08-29 05:00] LABS: Basophils % 0.5 % (0.0-0.8); Eosinophils # 0.1 10*3/uL (0.0-0.87); Eosinophils % 1.7 % (0.00-10.9); Hematocrit 35.8 VOL% (35.7-47.0); Hemoglobin 11.9 GM/DL (12.0-16.0); Immature Granulocytes % 0.2 %; Immature Granulocytes Absolute 0.02 #; Lymphocytes # 4.9 10*3/uL (1.4-4.0); Lymphocytes % 58.3 % (21.3-54.2); Mean Corpuscular HGB Conc 33.2 GM/DL (32-36); Mean Corpuscular Hemoglobin 30 PG (27-34); Mean Corpuscular Volume 90.4 FL (87-102); Mean Platelet Volume 11.6 FL (9.6-12.0); Monocytes # 0.7 10*3/uL (0.11-0.8); Monocytes % 8.5 % (1.7-12.7); Neutrophils # 2.6 10*3/uL (1.4-7.4); Neutrophils % 30.8 % (38.7-73.9); Platelet Count 261 T/CUMM (130-400); Red Blood Count 3.96 MC/CUMM (3.8-5.5); Red Cell Distribution Width 13.3 % (9.3-17.3); White Blood Count 8.4 T/CUMM (4-12)
[2016-08-29 05:31] LABS: Eosinophils 4 % (0-10); Hypochromasia 1+; Lymphocytes 57 % (20-55); Platelet Estimate Adequate; Segmented Neutrophils 35 % (50-85); Total Cells Counted 100
[2016-08-29 05:33] LABS: Calcium 8.8 MG/DL (8.5-10.1); Osmolality,Calculated 289.7 MOS/KG (273-304); Potassium 4.3 MMOL/L (3.5-5.1)
[2016-08-29 08:10] VITALS: BP 104/61
--- NOTE | 2016-08-29 08:21 | Discharge Summary ---
Hospital Course - Hospital Course Hospital Course: Patient is a 75-year-old female with history of multiple medical problems including hypothyroidism, hypertension, peripheral neuropathy, diabetes, dyslipidemia, gastroesophageal reflux disease and chronic back pain. She was admitted with chest pain and was seen in consultation by cardiology. It was felt that with her risk factors and some atypical pain that she would benefit from a cardiac catheterization. Her cardiac catheterization revealed no significant coronary disease with minimal irregularities. She had about 20% dorsal lesion multiple vessels. Normal global LV function. She has been pain- free after the cardiac cath. No bleeding from her cath site. Her peripheral pulses are palpable. She is ready to be discharged home. She will follow-up in 3-4 weeks in the office. Diagnosis - Discharge Diagnosis (1) Chest pain Status: Acute (2) Diabetes mellitus Status: Chronic (3) Essential hypertension Status: Chronic (4) GERD (gastroesophageal reflux disease) Status: Chronic (5) Hyperlipidemia Status: Chronic (6) Hyperthyroidism Status: Chronic Discharge Plan - Discharge Data Disposition: Disch To Home/Self Care Condition at Discharge: Stable Discharge Diet: advance to your usual diet, diabetic diet Activity: resume usual activities as tolerated - Discharge Medications Continue amLODIPine [Norvasc] 5 mg PO DAILY Montelukast Tab [Singulair Tab] 10 mg PO DAILY methIMAzole [Tapazole] 10 mg PO DAILY Clopidogrel [Plavix] 75 mg PO DAILY Simvastatin [Zocor] 40 mg PO BEDTIME hydroCHLOROthiazide [Hydrochlorothiazide] 25 mg PO DAILY Tramadol HCl [Tramadol Tab] 50 mg PO BID Meloxicam 15 mg PO DAILY Esomeprazole Magnesium [Nexium] 40 mg PO DAILY Amitriptyline HCl 25 mg PO BEDTIME metFORMIN [Glucophage] 500 mg PO BID W/MEALS #60 tablet Magnesium Chloride [Slow Mag] 64 mg PO TID Potassium Chloride [Klor-Con 10] 10 meq PO BID - Follow Up or Referral - Forms/Instructions Additional Discharge Instructions: Appointment 3-4 weeks in the office Exam - Constitutional Vitals: Period Temp Pulse Resp BP Sys/Rene Pulse Ox Last 24 Hr 98.2 F-98.2 F 73-86 16-20 99-132/53-88 95-100 Exam: Examination: GENERAL: NAD. NECK: Neck is supple. CVS: Regular rate and rhythm. S1 and S2 are normal. RESPIRATORY: Lungs are clear. No rales or rhonchi. ABDOMEN: Soft and nontender. EXT: No edema. Peripheral pulses are present. 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 Discharge Results Procedures and tests throughout hospitalization: Pending Orders 08/27/16 Urine Culture Routine 08/28/16 06:40 CL heart Routine Labs on day of discharge: Labs from last 24 hours 08/29/16 08/29/16 08/29/16 07:31 03:32 03:32 WBC 8.4 RBC 3.96 Hgb 11.9 L Hct 35.8 MCV 90.4 MCH 30 MCHC 33.2 RDW 13.3 Plt Count 261 MPV 11.6 Neut % (Auto) 30.8 L Lymph % (Auto) 58.3 H [place] % (Auto) 8.5 Eos % (Auto) 1.7 Baso % (Auto) 0.5 Neut # (Auto) 2.6 Lymph # (Auto) 4.9 H [place] # (Auto) 0.7 Eos # (Auto) 0.1 Baso # (Auto) 0.0 Total Counted 100 Immature Gran % 0.2 Nucleated RBC % 0.0 Immature Gran # 0.02 Segmented Neutrophils 35 L Lymphocytes 57 H Monocytes 4 Eosinophils 4 Nucleated RBCs # 0.00 Platelet Estimate Adequate Hypochromasia 1+ Morphology Comment Sodium 145 Potassium 4.3 Chloride 112 H Carbon Dioxide 23 Anion Gap 14.3 BUN 17 Creatinine 1.00 GFR Calculation 68 BUN/Creatinine Ratio 17.00 Glucose 91 POC Glucose 99 Calculated Osmolality 289.7 Calcium 8.8 08/28/16 08/28/16 08/28/16 20:00 15:38 11:26 WBC RBC Hgb Hct MCV MCH MCHC RDW Plt Count MPV Neut % (Auto) Lymph % (Auto) [place] % (Auto) Eos % (Auto) Baso % (Auto) Neut # (Auto) Lymph # (Auto) [place] # (Auto) Eos # (Auto) Baso # (Auto) Total Counted Immature Gran % Nucleated RBC % Immature Gran # Segmented Neutrophils Lymphocytes Monocytes Eosinophils Nucleated RBCs # Platelet Estimate Hypochromasia Morphology Comment Sodium Potassium Chloride Carbon Dioxide Anion Gap BUN Creatinine GFR Calculation BUN/Creatinine Ratio Glucose POC Glucose 150 H 101 145 H Calculated Osmolality Calcium 08/28/16 07:35 WBC RBC Hgb Hct MCV MCH MCHC RDW Plt Count MPV Neut % (Auto) Lymph % (Auto) [place] % (Auto) Eos % (Auto) Baso % (Auto) Neut # (Auto) Lymph # (Auto) [place] # (Auto) Eos # (Auto) Baso # (Auto) Total Counted Immature Gran % Nucleated RBC % Immature Gran # Segmented Neutrophils Lymphocytes Monocytes Eosinophils Nucleated RBCs # Platelet Estimate Hypochromasia Morphology Comment Sodium Potassium Chloride Carbon Dioxide Anion Gap BUN Creatinine GFR Calculation BUN/Creatinine Ratio Glucose POC Glucose 107 H Calculated Osmolality Calcium Preliminary micro results at discharge 08/27/16 Unknown Urine Culture - Preliminary Urine,Clean Catch No Growth at 24 hours. DS: Provider Date of admission: 08/25/16 13:55 Primary care physician: Jordy Thapa MD Attending physician on admission: Jordy Thapa MD Consults: 08/25/16 13:56 Consult to Case Mgmt/Social Srvs [CONS] Routine Reason for Case Mgmt/Social Srvs: Discharge Planning 08/25/16 13:57 Consult to Physician [CONS] Routine Comment: Consulting Provider: Bertrand Hernandez 08/25/16 14:57 Consult to Pharmacy [CONS] Routine Reason for Pharmacy Consult: Adjust Meds Renal Funct 08/26/16 14:14 Consult to Case Mgmt/Social Srvs [CONS] Routine Reason for Case Mgmt/Social Srvs: Discharge Planning Discharging clinician: Jordy Thapa MD
[2016-08-29] MEDS: MAGNESIUM CHLORIDE 64 MG TABLET PO SCH (09:15)
[2016-08-29] MEDS: hydroCHLOROthiazide 12.5 MG CAPSULE PO SCH (09:15)
[2016-08-29] MEDS: LEVOFLOXACIN 500 MG TABLET PO SCH (09:15)
[2016-08-29] MEDS: PANTOPRAZOLE 40 MG TABLET PO SCH (09:15)
[2016-08-29] MEDS: traMADol 50 MG TABLET PO SCH (09:16)
[2016-08-29] MEDS: amLODIPine 5 MG TABLET PO SCH (09:16)
[2016-08-29] MEDS: MELOXICAM 7.5 MG TABLET PO SCH (09:16)
[2016-08-29] MEDS: MONTELUKAST 10 MG TABLET PO SCH (09:16)
[2016-08-29] MEDS: DOCUSATE SODIUM 100 MG CAPSULE PO SCH (09:16)
[2016-08-29] MEDS: POTASSIUM CHLORIDE 10 MEQ TABLET PO SCH (09:16)
[2016-08-29] MEDS: CLOPIDOGREL 75 MG TABLET PO SCH (09:16)
--- NOTE | 2016-08-29 11:15 | Cardiology Progress Note ---
Assessment and Plan - Time spent with patient Time spent with patient: Greater than 30 minutes (1) Chest pain Status: Suspected Assessment and plan: Resolved (2) Diabetes mellitus Status: Chronic Assessment and plan: Continue current plan of care (3) Dyslipidemia Status: Chronic Assessment and plan: Continue current plan of care (4) Essential hypertension Status: Chronic Assessment and plan: Adequately controlled (5) Hyperlipidemia Status: Chronic Assessment and plan: Continue current plan of care (6) Obese Status: Chronic Assessment and plan: Continue current plan of care Cardiology - PN: Subj Interval history: Patient was admitted over the weekend with complaints of chest pain. Dr. Hernandez was Consulted. Patient underwent elective Cardiac Catheterization 08/28/2016 with the following impression noted: Impression: No significant coronary disease-minimal luminal irregularities, she has some 20 % or so lesions in multiple vessels Moderate distal vessel tortuosities Mild ectasia and tortuosity of the aorta-early atherosclerotic disease Normal global/regional left ventricular systolic function, LVEF greater than 55% Moderate elevation of LVEDP, 20 mmHg Angiogram of the right femoral artery-by follow-through from LV gram Angio-Seal right femoral artery-successful Plan/recommendations: The patient will have risk factors optimized. The patient will be on antiplatelet medications to include Plavix indefinitely. She is on a statin, so we will try to optimize her LDL. As Dr. Thapa is doing. If she could tolerate a low-dose of beta-batsheva, such as carvedilol, will try. It would be to reduce her DP/DT and stress on the aorta. This was slow progression of ectasia/aneurysmal formation. My suspicion is that her chest pain is either muscle skeletal or GI related. She apparently eats snacks late at night. I discussed that that may increase reflux and/or esophageal pain so I asked her not to eat within 3 or 4 hours of reclining. She plans to try to do so. At her request, I will see her back in about 8 weeks to assess how she is doing. I can certainly see her sooner should problems arise. It might be that this negative cath will help minimize some of her chest pain anyway, as it will be reassuring to her. Overnight, patient has done well. She's having no additional chest discomfort. Dr. Darian Mcdaniels has seen patient and his discharge patient. Ms. Platt is being given a follow-up appointment in [address] Hernandez. Her right groin is soft and free of hematoma or bruit. Exam (Progress Note) - Constitutional Vitals: Period Temp Pulse Resp BP Sys/Rene Pulse Ox Last 24 Hr 98.2 F-98.2 F 73-83 16-20 99-113/53-66 95-100 Exam: General: Appears well with no apparent distress. Pleasant and cooperative. Appears comfortable. HEENT: PERRL, normocephalic, atraumatic. Mucous membranes moist. No jaundice noted. Conjunctiva moist and clear, sclerae anicteric Neck: No JVD/HJR, no thyromegaly or lymphadenopathy noted. No carotid bruit appreciated Cardiac: Regular rate and rhythm. No murmur rub or gallop. Lungs: Clear to auscultation without accessory muscle use to assist the respiratory pattern. Not requiring oxygen. Abdomen: Soft, bowel sounds normoactive. Nontender and nondistended. No abdominal bruit or thrill noted. No masses noted. Musculoskeletal: No fluid collection. Decreased range of motion is noted. Extremities: Right groin soft, free of hematoma or bruit. No clubbing, cyanosis noted. No edema noted. Upper extremity pulses 2+. Lower extremity pulses 2+. Capillary refill less than 3 seconds. Skin: No unusual lesions or rashes. No skin breakdown appreciated. Neuro: Awake, alert and oriented 3. Moves all extremities well without hemiparesis or paralysis. No essential tremor is appreciated. Result/EKG - Labs CBC & BMP: 08/29/16 03:32 08/29/16 03:32 Lab Results: I have reviewed the past 24 hour labs Labs: Laboratory Results - last 24 hr 08/28/16 08/28/16 08/28/16 11:26 15:38 20:00 WBC RBC Hgb Hct MCV MCH MCHC RDW Plt Count MPV Neut % (Auto) Lymph % (Auto) [place] % (Auto) Eos % (Auto) Baso % (Auto) Neut # (Auto) Lymph # (Auto) [place] # (Auto) Eos # (Auto) Baso # (Auto) Total Counted Immature Gran % Nucleated RBC % Immature Gran # Segmented Neutrophils Lymphocytes Monocytes Eosinophils Nucleated RBCs # Platelet Estimate Hypochromasia Morphology Comment Sodium Potassium Chloride Carbon Dioxide Anion Gap BUN Creatinine GFR Calculation BUN/Creatinine Ratio Glucose POC Glucose 145 H 101 150 H Calculated Osmolality Calcium 08/29/16 08/29/16 08/29/16 03:32 03:32 07:31 WBC 8.4 RBC 3.96 Hgb 11.9 L Hct 35.8 MCV 90.4 MCH 30 MCHC 33.2 RDW 13.3 Plt Count 261 MPV 11.6 Neut % (Auto) 30.8 L Lymph % (Auto) 58.3 H [place] % (Auto) 8.5 Eos % (Auto) 1.7 Baso % (Auto) 0.5 Neut # (Auto) 2.6 Lymph # (Auto) 4.9 H [place] # (Auto) 0.7 Eos # (Auto) 0.1 Baso # (Auto) 0.0 Total Counted 100 Immature Gran % 0.2 Nucleated RBC % 0.0 Immature Gran # 0.02 Segmented Neutrophils 35 L Lymphocytes 57 H Monocytes 4 Eosinophils 4 Nucleated RBCs # 0.00 Platelet Estimate Adequate Hypochromasia 1+ Morphology Comment Sodium 145 Potassium 4.3 Chloride 112 H Carbon Dioxide 23 Anion Gap 14.3 BUN 17 Creatinine 1.00 GFR Calculation 68 BUN/Creatinine Ratio 17.00 Glucose 91 POC Glucose 99 Calculated Osmolality 289.7 Calcium 8.8 - EKG EKG results: interpreted by mt EKG shows: sinus rhythm Quality Measures - VTE Contraindication to Pharmacological VTE Prophylaxis: High Risk of Bleeding Specialty Discharge - Follow Up or Referrals Follow up with: Bertrand Hernandez MD [Physician] - 10/16/16 10:40 am Jordy Thapa MD [Primary Care Provider] - 09/26/16 2:15 pm (3-4wks)
== END 2016-08-29 10:30 | disposition home or self-care (01) | DRG 287 ==
LOC: N.EDINP 11:01 → N.ED 11:01 → N.TELES 14:55
PROVIDERS: ADMIT Internal Medicine; ATTEND Internal Medicine
PROC: CLCCHCL (ICD-10-PCS; 2016-08-28 09:45)